=== PATIENT | male | born 1960 | race Two or more races ===

== ENCOUNTER 2024-07-12 17:47 | Emergency (ER) | payer OTHER ==
[~2024-07-12] VITALS: Ht 182.9 cm; Wt 92.5 kg
[2024-07-12] MEDS ORDERED: KETOROLAC TROMETHAMINE 60 MG VIAL IM ONE ×2 (18:00→18:04)
[2024-07-12] MEDS ORDERED: KETO10TA2 PO (19:50)
[2024-07-12] MEDS ORDERED: NORFLEX100MG PO (19:50)
== END 2024-07-12 19:54 | disposition home or self-care (01) ==
LOC: ER 17:48
DX: M25.561 Pain in right knee (principal); M17.11 Unilateral primary osteoarthritis, right knee